=== PATIENT | male | born 1950 | race Caucasian/White ===

== ENCOUNTER → 2016-07-05 | Outpatient (CLI) | payer OTHER, SELFPAY ==
--- NOTE | 2016-07-07 22:05 | MRI ---
MRI right wrist without contrast INDICATION: Wrist injury felt pop calcification in the area of the TFC, ulnocarpal ligament injury TECHNIQUE: Noncontrast MR imaging right wrist FINDINGS: There is severe marrow edema in the distal ulna. There is a hairline relatively transverse fracture in the distal ulna near the distal radioulnar joint series 301 image #9. No complete fracture. There is an interstitial partial tear at the ulnar attachment of the TFC with background degenerative signal. Prominent distal radioulnar joint fluid and diffuse adjacent soft tissue edema. No evidence of intrinsic ligament disruption otherwise. Mild edema in the meniscal homologue. No discrete ulnar styloid fracture. Small cyst in the lunate with additional small degenerative carpal cysts in the STT compartment and capitate. There is also irregularity of the cortex with cystic change/edema or erosion along the dorsal aspect of the distal ulna. This could relate to an inflammatory arthritic process or unusual posttraumatic arthrosis. The calcifications on plain films could be related to chondrocalcinosis, pannus or a very small avulsion injury. The calcifications are not visualized on MRI and plain films are not currently available. No rupture or dislocation of the extensor carpi ulnaris. No large central defect in the TFC. No fracture in the remainder of the wrist. There is a small ganglion along the dorsal aspect of the wrist near the dorsal band scapholunate ligament. IMPRESSION: Small hairline nondisplaced fracture distal ulna near the distal radioulnar joint Dorsal distal ulna cystic change/cystic erosion with edema and cortical irregularity Mild interstitial partial tear of the ulnar attachment of the TFC but no complete rupture Large volume joint fluid distal radioulnar joint with adjacent inflammation see above discussion No additional fracture Scattered small degenerative carpal cysts. Electronically signed by: Gen Ruiz MD 07/07/2016 10:04 PM CDT
== END ==
LOC: MRI 07:05
PROVIDERS: ATTEND Family Medicine
DX: S52.291A Other fracture of shaft of right ulna, initial encounter for closed fracture (principal); S53.31XA Traumatic rupture of right ulnar collateral ligament, initial encounter

== ENCOUNTER → 2016-07-22 | Outpatient (CLI) | payer OTHER | END | disposition home or self-care (01) | LOC: GMAL 16:51 | PROVIDERS: ATTEND Family Medicine | DX: Z12.5 Encounter for screening for malignant neoplasm of prostate (principal) ==

== ENCOUNTER → 2017-07-02 | Outpatient (CLI) | payer MEDICARE, OTHER | LOC: GMAL 15:06 | PROVIDERS: ATTEND Family Medicine | DX: L72.3 Sebaceous cyst (principal) ==

== ENCOUNTER → 2017-11-26 | Outpatient (CLI) | payer MEDICARE, OTHER | LOC: GMAL 10:55 | PROVIDERS: ATTEND Family Medicine | DX: D51.3 Other dietary vitamin B12 deficiency anemia (principal); R53.83 Other fatigue; E55.9 Vitamin D deficiency, unspecified; Z12.5 Encounter for screening for malignant neoplasm of prostate | CPT/HCPCS: 82306; 82607; 84443; G0103 ==

== ENCOUNTER → 2017-12-29 | Outpatient (CLI) | payer MEDICARE, OTHER | LOC: GMAL 15:07 | PROVIDERS: ATTEND Family Medicine | DX: R21 Rash and other nonspecific skin eruption (principal) ==

== ENCOUNTER → 2019-11-10 | Outpatient (CLI) | payer MEDICARE, OTHER | LOC: GMAL 14:38 | PROVIDERS: ATTEND Family Medicine | DX: D51.3 Other dietary vitamin B12 deficiency anemia (principal); R53.83 Other fatigue; M10.9 Gout, unspecified; E55.9 Vitamin D deficiency, unspecified; I10 Essential (primary) hypertension; R73.09 Other abnormal glucose; Z79.899 Other long term (current) drug therapy ==

== ENCOUNTER → 2019-11-30 | Outpatient (CLI) | payer MEDICARE, OTHER ==
--- NOTE | 2019-12-01 11:50 | US ---
EXAM DESCRIPTION: Abdomen,Complete: Ultrasound. CLINICAL HISTORY: 69 years Male ABNORMAL RESULTS OF LIVER FUNCTION STUDIES COMPARISON: None Available. TECHNIQUE: Transabdominal scanning: grayscale and Doppler modes. FINDINGS: Gallbladder: normal size, shape, echogenicity; no intraluminal stones or sludge. No fluid around the gallbladder. No wall thickening. 2.1 mm. Non-tender with transducer pressure. Common bile duct: caliber 4.4 mm within normal limits. Liver: Heterogeneously increased echogenicity; contour liver capsule smooth where seen. No fluid around the liver. Intrahepatic biliary ducts normal caliber. Doppler hepatopedal flow and normal caliber portal vein 12 mm.. Long axis right lobe 19 cm. Pancreas: normal size and echogenicity. Duct not seen. Complete abdominal aorta: Normal caliber from the proximal segment to the distal bifurcation.. Minimal atherosclerotic changes. IVC: visualized and normal caliber. Right kidney: long axis measures 12.1 cm; volume 197.9 mL. Normal cortical echogenicity.. Normal cortical thickness. No echogenic stones; no hydronephrosis. Left kidney: long axis measures 11.3 cm; volume 187.4 mL. Normal cortical echogenicity.. Normal cortical thickness. No echogenic stones; no hydronephrosis. Spleen: Normal. No focal lesions.. 13.7 cm long axis. Upper normal range. Other: None. IMPRESSION: 1. Enlarged liver with steatosis. Caliber of the ducts negative; physiologic flow in the portal vein. Smooth capsule with no ascites. Pancreas unremarkable. 2. Gallbladder and common bile duct are negative. Normal caliber of the abdominal aorta and IVC. 3. Bilateral kidneys are unremarkable. Spleen is upper normal limits in size with normal echogenicity. Electronically signed by: Cisco Diehl MD 12/01/2019 11:48 AM CDT
== END ==
LOC: US 08:30
PROVIDERS: ATTEND Family Medicine
DX: R94.5 Abnormal results of liver function studies (principal); K76.0 Fatty (change of) liver, not elsewhere classified

== ENCOUNTER → 2020-01-18 | Outpatient (CLI) | payer MEDICARE, OTHER | LOC: GMAL 14:28 | PROVIDERS: ATTEND Family Medicine | DX: D51.3 Other dietary vitamin B12 deficiency anemia (principal); E55.9 Vitamin D deficiency, unspecified; R94.5 Abnormal results of liver function studies ==